=== PATIENT | male | born 1960 | race Caucasian/White ===

== ENCOUNTER 2019-12-13 23:09 | Inpatient (IN) | payer MEDICARE, MEDICAID ==
[~2019-12-13] VITALS: Ht 172.7 cm; Wt 81.2 kg
[2019-12-14] MEDS ORDERED: MIRT-92 PO (01:45)
[2019-12-14] MEDS ORDERED: RISP1 PO (01:45)
[2019-12-14 02:05] LABS: BASOPHILS % (AUTO) 0.4 % (0.0-2.0); EOSINOPHILS % (AUTO) 0.4 % (1.0-6.0); HEMATOCRIT 41.8 % (41-53); HEMOGLOBIN 14.2 g/dL (13.5-17.5); LYMPHOCYTES # (AUTO) 2.1 K/uL (1.0-4.8); LYMPHOCYTES % (AUTO) 20.2 % (22.0-44.0); MEAN CORPUSCULAR HEMOGLOBIN 30.7 pg (26.0-34.0); MEAN CORPUSCULAR VOLUME 90 fL (80-100); MONOCYTES # (AUTO) 1.1 K/uL (0.1-1.0); MONOCYTES % (AUTO) 10.5 % (2.0-9.0); NEUTROPHILS # (AUTO) 7.1 K/uL (1.8-7.7); NEUTROPHILS % (AUTO) 68.5 % (40.0-70.0); PLATELET COUNT (AUTO) 323 K/uL (150-450); RED BLOOD CELL COUNT(AUTO) 4.62 MIL/uL (4.50-5.90); RED CELL DISTRIBUTION WIDTH 15.1 % (11.5-14.5)
[2019-12-14 02:15] LABS: ANION GAP 7 mmol/L (8-16); CALCIUM, TOTAL 9.5 mg/dL (8.8-10.5); CARBON DIOXIDE 28 mmol/L (22-29); CHLORIDE 99 mmol/L (98-107); CREATININE 0.78 mg/dL (0.60-1.30); GLOMERULAR FILTR. RATE CALC > 60 mL/min (>60); GLUCOSE,RANDOM 123 mg/dL (70-110); POTASSIUM 3.6 mmol/L (3.5-5.1); SODIUM SERUM 134 mmol/L (136-145); UREA NITROGEN, BLOOD 10 mg/dL (7-18)
[2019-12-14] MEDS ORDERED: FAMOTIDINE 20 MG TABLET PO ONE (02:15)
[2019-12-14] MEDS ORDERED: ONDANSETRON HCL 4 MG TABLET PO ONE (02:15)
[2019-12-14] MEDS ORDERED: PB/HYOSCY/ATR/SCOP/LIDO/MAALOX 55 ML BOTTLE PO ONE (02:15)
[2019-12-14 02:20] LABS: ALANINE AMINOTRANSFERASE 56 U/L (12-78); ALBUMIN 4.3 g/dL (3.4-5.0); ALKALINE PHOSPHATASE 112 U/L (46-116); ASPARTATE AMINOTRANSFERASE 24 U/L (15-37); BILIRUBIN,TOTAL 0.6 mg/dL (0.1-1.0); LIPASE 102 U/L (73-393)
[2019-12-14 02:36] LABS: AMPHET/METH SCREEN,URINE POSITIVE (NEGATIVE); BARBITURATE SCREEN, URINE NEGATIVE (NEGATIVE); BENZODIAZEPINES SCREEN,URINE NEGATIVE (NEGATIVE); CANNABINOID SCREEN,URINE POSITIVE (NEGATIVE); COCAINE SCREEN,URINE NEGATIVE (NEGATIVE); METHADONE SCREEN, URINE NEGATIVE (NEGATIVE); OPIATE SCREEN,URINE NEGATIVE (NEGATIVE)
[2019-12-14 02:37] LABS: PHENCYCLIDINE SCREEN,URINE NEGATIVE (NEGATIVE)
[2019-12-14 02:42] LABS: APPEARANCE,URINE CLOUDY (CLEAR); BILIRUBIN,URINE NEGATIVE (NEGATIVE); GLUCOSE, URINE (UA) NEGATIVE (NEGATIVE); KETONES,URINE 15 mg/dL (NEGATIVE); LEUKOCYTE ESTERASE ,URINE MODERATE (NEGATIVE); NITRATE,URINE POSITIVE (NEGATIVE); OCCULT BLOOD,URINE SMALL (NEGATIVE); PH,URINE 6.5 (5.0-8.0); PROTEIN,URINE POS 1+ (NEGATIVE); UROBILINOGEN,URINE 0.2 mg/dL (<=1.0)
[2019-12-14 02:43] LABS: BACTERIA,URINE Moderate /HPF (None Seen); SQUAMOUS EPITHELIAL CELL,UR Few /LPF (None Seen); WBC,URINE >100 /HPF (0-5)
[2019-12-14] MEDS ORDERED: LIDOCAINE/PF 1% 2 ML VIAL IM ONE (03:45)
[2019-12-14] MEDS ORDERED: CefTRIAXone SODIUM 1 GM/VIAL IM ONE (03:45)
[2019-12-14] MEDS ORDERED: IBUPROFEN 800 MG TABLET PO ONE (04:15)
[2019-12-14] MEDS ORDERED: NICOTINE 14 MG/24 HOUR PATCH TD ONE (08:30)
[2019-12-14] MEDS ORDERED: CloNIDine HCL 0.1 MG TABLET PO PRN ×2 (15:00→21:15)
[2019-12-14] MEDS ORDERED: LOPERAMIDE HCL 2 MG CAPSULE PO PRN ×2 (15:00→21:15)
[2019-12-14] MEDS ORDERED: PETROLATUM,WHITE 28 GM JELLY TP PRN ×2 (15:00→21:15)
[2019-12-14] MEDS ORDERED: GuaiFENesin/D-METHORPHAN [SUGAR-FREE] 200-20MG/10 ML SYRUP UDCUP PO PRN ×2 (15:00→21:15)
[2019-12-14] MEDS ORDERED: DOCUSATE SODIUM 100 MG CAPSULE PO PRN ×2 (15:00→21:15)
[2019-12-14] MEDS ORDERED: MAG HYDROX/AL HYDROX/SIMETH ES 30 ML SUSPENSION UDCUP PO PRN ×2 (15:00→21:15)
[2019-12-14] MEDS ORDERED: MAGNESIUM HYDROXIDE SUSPENSION 30 ML UDCUP PO PRN ×2 (15:00→21:15)
[2019-12-14] MEDS ORDERED: NICOTINE 14 MG/24 HOUR PATCH TD PRN ×2 (15:00→21:15)
[2019-12-14] MEDS ORDERED: ALBUTEROL SULFATE HFA 90 MCG/PUFF 8 GM INHALER IH PRN ×2 (15:00→21:15)
[2019-12-14] MEDS ORDERED: ONDANSETRON HCL 4 MG TABLET PO PRN ×2 (15:00→21:15)
[2019-12-14] MEDS ORDERED: LORazepam 2 MG/ML VIAL ONE (16:25)
[2019-12-14] MEDS ORDERED: HALOPERIDOL LACTATE 5 MG/ML VIAL ONE (16:25)
[2019-12-14] MEDS ORDERED: DiphenhydrAMINE HCL 50 MG/ML VIAL ONE (16:25)
[2019-12-14] MEDS ORDERED: DiphenhydrAMINE HCL 50 MG/ML VIAL IM ONE (16:30)
[2019-12-14] MEDS ORDERED: HALOPERIDOL LACTATE 5 MG/ML VIAL IM ONE (16:30)
[2019-12-14] MEDS ORDERED: LORazepam 2 MG/ML VIAL IM ONE (16:30)
[2019-12-14] MEDS: CEPHALEXIN MONOHYDRATE 250 MG CAPSULE PO SCH (16:41)
[2019-12-14] MEDS ORDERED: LORazepam 2 MG TABLET PO PRN (18:00)
[2019-12-14] MEDS ORDERED: HALOPERIDOL 5 MG TABLET PO PRN (18:00)
[2019-12-14] MEDS ORDERED: ZOLPIDEM TARTRATE 10 MG TABLET PO PRN (18:00)
[2019-12-14] MEDS ORDERED: INFLUENZA VIRUS VACCINE QVS 2019-20 (3YR+)/PF 60 MCG/0.5 ML SYRINGE IM ONE (18:15)
[2019-12-14] MEDS ORDERED: IBUPROFEN 400 MG TABLET PO PRN (21:15)
[2019-12-14] MEDS ORDERED: ACETAMINOPHEN 325 MG TABLET PO PRN (21:15)
[2019-12-15 01:57] VITALS: BP 113/81
[2019-12-15 07:55] LABS: HEMOGLOBIN A1C 5.8 % (4.5-6.2)
[2019-12-15 08:19] VITALS: BP 123/86
[2019-12-15 08:25] LABS: CHOL/HDL RATIO 3.7 (4.2-7.3); THYROID STIMULATING HORMONE 1.85 uIU/mL (0.36-3.74)
[2019-12-15] MEDS: CEPHALEXIN MONOHYDRATE 250 MG CAPSULE PO SCH ×3 (08:54→16:41)
[2019-12-15] MEDS: RisperiDONE 1 MG TABLET PO SCH ×2 (12:26→20:35)
[2019-12-15 16:26] VITALS: BP 115/77
[2019-12-15] MEDS: FLUTICASONE PROPIONATE 50 MCG/SPRAY 16 GM NASAL SPRAY NASAL SCH (16:41)
[2019-12-15] MEDS: MIRTAZAPINE 15 MG TABLET PO SCH (20:35)
[2019-12-16 01:36] VITALS: BP 118/76
[2019-12-16] MEDS: CEPHALEXIN MONOHYDRATE 250 MG CAPSULE PO SCH ×3 (08:31→16:36)
[2019-12-16] MEDS: RisperiDONE 1 MG TABLET PO SCH ×2 (08:31→20:30)
[2019-12-16] MEDS: FLUTICASONE PROPIONATE 50 MCG/SPRAY 16 GM NASAL SPRAY NASAL SCH ×2 (08:32→16:36)
[2019-12-16 08:34] VITALS: BP 137/79
[2019-12-16 10:16] VITALS: BP 129/82
[2019-12-16] MEDS: ACETAMINOPHEN 325 MG TABLET PO PRN ×2 (10:16→20:22)
[2019-12-16 16:21] VITALS: BP 104/70
[2019-12-16] MEDS: MIRTAZAPINE 15 MG TABLET PO SCH (20:30)
[2019-12-17 00:50] VITALS: BP 105/68
[2019-12-17 08:28] VITALS: BP 106/61
[2019-12-17] MEDS: RisperiDONE 1 MG TABLET PO SCH ×2 (08:57→21:23)
[2019-12-17] MEDS: CEPHALEXIN MONOHYDRATE 250 MG CAPSULE PO SCH ×3 (08:57→21:23)
[2019-12-17] MEDS: FLUTICASONE PROPIONATE 50 MCG/SPRAY 16 GM NASAL SPRAY NASAL SCH ×2 (09:09→16:50)
[2019-12-17] MEDS: IBUPROFEN 400 MG TABLET PO PRN (11:59)
[2019-12-17 17:00] VITALS: BP 112/83
[2019-12-17] MEDS: MIRTAZAPINE 15 MG TABLET PO SCH (21:23)
[2019-12-17] MEDS: ACETAMINOPHEN 325 MG TABLET PO PRN (21:26)
[2019-12-18 01:52] VITALS: BP 104/66
[2019-12-18 08:46] VITALS: BP 122/66
[2019-12-18] MEDS: CEPHALEXIN MONOHYDRATE 250 MG CAPSULE PO SCH ×3 (09:00→16:40)
[2019-12-18] MEDS: FLUTICASONE PROPIONATE 50 MCG/SPRAY 16 GM NASAL SPRAY NASAL SCH ×2 (09:00→16:40)
[2019-12-18] MEDS: RisperiDONE 1 MG TABLET PO SCH ×2 (09:00→20:36)
[2019-12-18] MEDS ORDERED: RISP1 PO (10:42)
[2019-12-18] MEDS ORDERED: MIRT15TA6 PO (10:42)
[2019-12-18 12:36] VITALS: BP 113/71
[2019-12-18] MEDS: IBUPROFEN 400 MG TABLET PO PRN (12:36)
[2019-12-18 16:26] VITALS: BP 121/85
[2019-12-18] MEDS: MIRTAZAPINE 15 MG TABLET PO SCH (20:36)
[2019-12-19 00:38] VITALS: BP 100/67
== END 2019-12-19 07:05 | disposition home or self-care (01) | DRG 885 ==
LOC: EMS 23:13 → B2X 12-14 13:23
PROC: 3E0234Z Introduction of Serum, Toxoid and Vaccine into Muscle, Percutaneous Approach (ICD-10-PCS; principal; 2019-12-14)
DX: F25.1 Schizoaffective disorder, depressive type (principal); N39.0 Urinary tract infection, site not specified; R45.851 Suicidal ideations; F10.10 Alcohol abuse, uncomplicated; Z71.41 Alcohol abuse counseling and surveillance of alcoholic; F12.10 Cannabis abuse, uncomplicated; F15.10 Other stimulant abuse, uncomplicated; J30.9 Allergic rhinitis, unspecified; Z59.0 Homelessness; Z79.899 Other long term (current) drug therapy; Z91.5 Personal history of self-harm; Z23 Encounter for immunization
CPT/HCPCS: 83036; 84443; 87086; G0480; J0696; J1200; J1630; J2060; J3490; Q0162